=== PATIENT | male | born 1995 | race Caucasian/White ===

== ENCOUNTER 2017-06-01 16:19 | Emergency (ER) | payer OTHER ==
[~2017-06-01] VITALS: Ht 187.9 cm; Wt 104.3 kg
[~2017-06-01 16:19] MED LIST: ATARAX25 MG PO; ELIMITE 5%60 GM PO; FLEXERIL10 MG PO; FLUOXETINE HCL10 MG PO; HYDROCODONE BIT1 T11 PO; KEFLEX500 MG PO; LIDEX0.05% T; MOTRIN800 MG PO; PREDNICOT20 MG PO; PREDNISONE20 M1 PO; PROZAC20 MG PO; ZYRTEC10 MG PO
[2017-06-01] MEDS ORDERED: DELTASONE20 M1 PO (18:37)
[2017-06-01] MEDS ORDERED: CYCLOBENZAPRINE5 M3 PO (18:37)
[2017-06-01] MEDS ORDERED: Motrin,Rufen800 MG PO (18:37)
== END 2017-06-01 19:59 | disposition home or self-care (01) ==
LOC: ED 16:19
DX: G89.29 Other chronic pain (principal); M54.5 Low back pain; F17.200 Nicotine dependence, unspecified, uncomplicated

== ENCOUNTER 2017-06-24 19:22 | Emergency (ER) | payer OTHER ==
[~2017-06-24] VITALS: Wt 99.8 kg
[~2017-06-24 19:22] MED LIST changes: +CYCLOBENZAPRINE5 M3 PO; +DELTASONE20 M1 PO; +Motrin,Rufen800 MG PO
== END 2017-06-24 19:36 | disposition home or self-care (01) ==
LOC: ED 19:22
DX: R51 Headache (principal); F17.200 Nicotine dependence, unspecified, uncomplicated; G43.909 Migraine, unspecified, not intractable, without status migrainosus

== ENCOUNTER 2017-06-26 09:32 | Emergency (ER) | payer OTHER ==
[~2017-06-26] VITALS: Ht 187.9 cm; Wt 104.3 kg
[2017-06-26 10:04] LABS: BASO # 0.1 10*3/uL (0.0-0.1); BASO % 0.8 % (0.0-1.0); EOS # 0.2 10*3/uL (0.0-0.4); EOS % 1.8 % (1.0-4.0); HEMATOCRIT 41.5 % (42.0-52.0); HEMOGLOBIN 14.4 g/dl (14.0-18.0); LYMPH % 31.4 % (27.0-41.0); MEAN CORPUSCULAR HGB 31.2 pg (27.0-31.0); MEAN CORPUSCULAR HGB CONC 34.7 g/dl (33.0-37.0); MEAN PLATELET VOLUME 8.6 fl (9.6-12.3); MONO # 0.6 10*3/uL (0.1-1.0); MONO % 6.4 % (3.0-9.0); NEUT # 5.7 10*3/uL (2.3-7.9); PLATELET COUNT AUTOMATED 303 10*3/uL (130-400); RED BLOOD COUNT 4.61 10*6/uL (4.50-5.90); RED CELL DISTRI WIDTH 12.2 % (0-14.5); WHITE BLOOD COUNT 9.7 10*3/uL (4.8-10.8)
[2017-06-26 10:24] LABS: ALKALINE PHOSPHATASE 75 U/L (45-117); BUN 12 mg/dl (7-24); CHLORIDE 110 mmol/L (98-107); CREATININE 0.89 mg/dL (0.70-1.30); LIPASE 154 U/L (73-393); MAGNESIUM 2.2 mg/dL (1.5-2.1); POTASSIUM 3.9 mmol/L (3.5-5.1); SGOT/AST 24 IU/L (3-35); SGPT/ALT 43 U/L (12-78); SODIUM 140 mmol/L (136-145); TOTAL PROTEIN 7.4 gm/dL (6.4-8.2)
== END 2017-06-26 13:26 | disposition home or self-care (01) ==
LOC: ED 09:32
PROVIDERS: Emergency Medicine
DX: R51 Headache (principal); F17.200 Nicotine dependence, unspecified, uncomplicated; Z79.899 Other long term (current) drug therapy

== ENCOUNTER 2018-02-12 19:29 | Emergency (ER) | payer OTHER ==
[~2018-02-12] VITALS: Ht 187.9 cm; Wt 73.5 kg
[2018-02-12] MEDS ORDERED: NORVASC5 MG PO (19:31)
[2018-02-12] MEDS ORDERED: LEXAPRO10 MG PO (19:31)
[2018-02-12] MEDS ORDERED: TRICOR48 MG PO (19:32)
[2018-02-12 20:15] LABS: BASO # 0.1 10*3/uL (0.0-0.1); BASO % 0.4 % (0.0-1.0); EOS # 0.2 10*3/uL (0.0-0.4); EOS % 1.1 % (1.0-4.0); HEMATOCRIT 42.4 % (42.0-52.0); HEMOGLOBIN 13.9 g/dl (14.0-18.0); LYMPH # 1.2 10*3/uL (1.3-4.4); LYMPH % 8.7 % (27.0-41.0); MEAN CELL VOLUME 96.6 fl (80.0-94.0); MEAN CORPUSCULAR HGB 31.7 pg (27.0-31.0); MEAN CORPUSCULAR HGB CONC 32.8 g/dl (33.0-37.0); MEAN PLATELET VOLUME 8.8 fl (9.6-12.3); MONO # 0.8 10*3/uL (0.1-1.0); MONO % 5.9 % (3.0-9.0); NEUT # 11.4 10*3/uL (2.3-7.9); NEUT % 83.1 % (47.0-73.0); PLATELET COUNT AUTOMATED 219 10*3/uL (130-400); RED BLOOD COUNT 4.39 10*6/uL (4.50-5.90); RED CELL DISTRI WIDTH 12.4 % (0-14.5); WHITE BLOOD COUNT 13.7 10*3/uL (4.8-10.8)
[2018-02-12 20:31] LABS: ALKALINE PHOSPHATASE 70 U/L (45-117); BUN 11 mg/dl (7-24); CHLORIDE 108 mmol/L (98-107); CREATININE 1.25 mg/dL (0.70-1.30); POTASSIUM 4.1 mmol/L (3.5-5.1); SGOT/AST 28 IU/L (3-35); SGPT/ALT 35 U/L (12-78); SODIUM 140 mmol/L (136-145); TOTAL PROTEIN 7.6 gm/dL (6.4-8.2)
== END 2018-02-12 21:32 | disposition home or self-care (01) ==
LOC: ED 19:29
PROVIDERS: Student in an Organized Health Care Education/Training Program
DX: R19.7 Diarrhea, unspecified (principal); G89.29 Other chronic pain; Z88.5 Allergy status to narcotic agent; Z79.899 Other long term (current) drug therapy

== ENCOUNTER 2018-10-31 15:48 | Emergency (ER) | payer MEDICAID ==
[~2018-10-31] VITALS: Ht 187.9 cm; Wt 94.3 kg
[~2018-10-31 15:48] MED LIST changes: +LEXAPRO10 MG PO; +NORVASC5 MG PO; +TRICOR48 MG PO
[2018-10-31] MEDS ORDERED: ZOFRAN4 MG PO (16:49)
== END 2018-10-31 16:59 | disposition home or self-care (01) ==
LOC: ED 15:48
DX: J02.8 Acute pharyngitis due to other specified organisms (principal); B97.89 Other viral agents as the cause of diseases classified elsewhere; Z88.6 Allergy status to analgesic agent; Z79.899 Other long term (current) drug therapy

== ENCOUNTER 2018-11-26 11:27 | Emergency (ER) | payer OTHER ==
[~2018-11-26] VITALS: Ht 187.9 cm; Wt 95.3 kg
[~2018-11-26 11:27] MED LIST changes: +ZOFRAN4 MG PO
[2018-11-26 12:16] LABS: HEMATOCRIT 44.4 % (42.0-52.0); HEMOGLOBIN 14.4 g/dl (14.0-18.0); MEAN CELL VOLUME 92.7 fl (80.0-94.0); MEAN CORPUSCULAR HGB 30.1 pg (27.0-31.0); MEAN CORPUSCULAR HGB CONC 32.4 g/dl (33.0-37.0); MEAN PLATELET VOLUME 8.8 fl (9.6-12.3); PLATELET COUNT AUTOMATED 249 10*3/uL (130-400); RED BLOOD COUNT 4.79 10*6/uL (4.50-5.90); RED CELL DISTRI WIDTH 13.2 % (0-14.5); WHITE BLOOD COUNT 7.8 10*3/uL (4.8-10.8)
[2018-11-26 12:20] LABS: BUN 7 mg/dl (7-24); CHLORIDE 106 mmol/L (98-107); CREATININE 0.85 mg/dL (0.70-1.30); POTASSIUM 4.3 mmol/L (3.5-5.1); SODIUM 138 mmol/L (136-145)
[2018-11-26 12:29] LABS: BILIRUBIN NEGATIVE (NEGATIVE); BLOOD NEGATIVE (NEGATIVE); CLARITY SL CLOUDY (CLEAR); COLOR YELLOW (YELLOW); GLUCOSE NEGATIVE (NEGATIVE); KETONE NEGATIVE (NEGATIVE); LEUKO ESTERASE NEGATIVE (NEGATIVE); NITRITE NEGATIVE (NEGATIVE); UROBILINOGEN 0.2 E.U./dl (0.2-1.0)
[2018-11-26 12:43] LABS: ATYPICAL LYMPHS 24 % (0-0); BASOPHILS 1 % (0-1); PLATELET SUFFICIENCY NORMAL (NORMAL); TOTAL CELLS COUNTED 100 #CELLS
[2018-11-26 12:50] LABS: BACTERIA 1+
[2018-11-26] MEDS ORDERED: CIPRO500 MG PO (13:09)
[2018-11-26] MEDS ORDERED: NORCO 10-325 T1 EACH PO (13:11)
== END 2018-11-26 13:27 | disposition home or self-care (01) ==
LOC: ED 11:27
PROVIDERS: Emergency Medicine
DX: N45.1 Epididymitis (principal); G89.29 Other chronic pain; Z79.899 Other long term (current) drug therapy

== ENCOUNTER 2019-05-24 09:06 | Emergency (ER) | payer OTHER ==
[~2019-05-24] VITALS: Wt 95.3 kg
[~2019-05-24 09:06] MED LIST changes: +CIPRO500 MG PO; +NORCO 10-325 T1 EACH PO
[2019-05-24] MEDS ORDERED: Motrin,Rufen800 MG PO (10:21)
== END 2019-05-24 10:31 | disposition home or self-care (01) ==
LOC: ED 09:06
DX: S49.91XA Unspecified injury of right shoulder and upper arm, initial encounter (principal); F17.200 Nicotine dependence, unspecified, uncomplicated; Z88.6 Allergy status to analgesic agent; W01.0XXA Fall on same level from slipping, tripping and stumbling without subsequent striking against object, initial encounter; Y93.89 Activity, other specified; Y92.89 Other specified places as the place of occurrence of the external cause; Y99.8 Other external cause status

== ENCOUNTER 2020-09-27 00:23 | Emergency (ER) | payer MEDICAID ==
[~2020-09-27] VITALS: Ht 187.9 cm; Wt 117.9 kg
[2020-09-27] MEDS ORDERED: Orphenadrine C100 MG PO (03:33)
== END 2020-09-27 04:00 | disposition home or self-care (01) ==
LOC: ED 00:23
DX: S39.012A Strain of muscle, fascia and tendon of lower back, initial encounter (principal); Z88.6 Allergy status to analgesic agent; X58.XXXA Exposure to other specified factors, initial encounter; Y93.89 Activity, other specified; Y92.89 Other specified places as the place of occurrence of the external cause; Y99.8 Other external cause status

== ENCOUNTER 2023-10-22 12:48 | Emergency (ER) | payer MEDICAID ==
[~2023-10-22] VITALS: Ht 187.9 cm; Wt 112.0 kg
[~2023-10-22 12:48] MED LIST changes: +Orphenadrine C100 MG PO
[2023-10-22] MEDS ORDERED: AMOX-CLAV 875-1 EACH PO (13:25)
== END 2023-10-22 13:34 | disposition home or self-care (01) ==
LOC: ED 12:48
DX: H66.91 Otitis media, unspecified, right ear (principal); F32.A Depression, unspecified; G43.909 Migraine, unspecified, not intractable, without status migrainosus; I10 Essential (primary) hypertension; Z88.8 Allergy status to other drugs, medicaments and biological substances

== ENCOUNTER 2024-04-24 12:11 | Emergency (ER) | payer MEDICAID ==
[~2024-04-24] VITALS: Ht 187.9 cm; Wt 104.3 kg
[~2024-04-24 12:11] MED LIST changes: +AMOX-CLAV 875-1 EACH PO
[2024-04-24] MEDS ORDERED: AMLODIPINE BESYL5 MG PO (12:19)
[2024-04-24] MEDS ORDERED: METOPROLOL SUC100 M1 PO (12:20)
[2024-04-24] MEDS ORDERED: Ondansetron Hydrochloride 4 MG/2 ML VIAL IV ONE (12:40)
[2024-04-24] MEDS ORDERED: Ketorolac Tromethamine 15 MG/ML VIAL IV ONE (12:40)
[2024-04-24] MEDS ORDERED: SODIUM CHLORIDE 0.9% 1,000 ML IV ONE (12:40)
[2024-04-24] MEDS ORDERED: diphenhydrAMINE hydrochloride 50 MG/ML VIAL IV ONE (12:40)
[2024-04-24 12:53] LABS: BASO # 0.1 10*3/uL (0.0-0.1); BASO % 1.1 % (0.0-1.0); EOS # 0.3 10*3/uL (0.0-0.4); EOS % 4.3 % (1.0-4.0); HEMATOCRIT 48.1 % (42.0-52.0); LYMPH # 1.8 10*3/uL (1.3-4.4); LYMPH % 24.7 % (27.0-41.0); MEAN CELL VOLUME 91.8 fl (80.0-94.0); MEAN CORPUSCULAR HGB 30.5 pg (27.0-31.0); MEAN CORPUSCULAR HGB CONC 33.3 g/dl (33.0-37.0); MEAN PLATELET VOLUME 8.4 fl (9.6-12.3); MONO # 0.5 10*3/uL (0.1-1.0); MONO % 7.4 % (3.0-9.0); NEUT # 4.5 10*3/uL (2.3-7.9); NEUT % 61.8 % (47.0-73.0); PLATELET COUNT AUTOMATED 275 10*3/uL (130-400); RED BLOOD COUNT 5.24 10*6/uL (4.50-5.90); RED CELL DISTRI WIDTH 12.3 % (0-14.5); WHITE BLOOD COUNT 7.2 10*3/uL (4.8-10.8)
[2024-04-24 13:10] LABS: BUN 10 mg/dl (9-23); CHLORIDE 105 mmol/L (98-107); POTASSIUM 4.1 mmol/L (3.4-5.1)
[2024-04-24] MEDS ORDERED: Ondansetron4 MG PO (14:18)
== END 2024-04-24 14:23 | disposition home or self-care (01) ==
LOC: ED 12:11
PROVIDERS: Nurse Practitioner Family
DX: G43.909 Migraine, unspecified, not intractable, without status migrainosus (principal); R11.0 Nausea; I10 Essential (primary) hypertension; F32.A Depression, unspecified; Z88.5 Allergy status to narcotic agent